=== PATIENT | female | born 1980 | race Hispanic/Latino ===

== ENCOUNTER 2021-04-09 11:59 | Emergency (ER) | payer SELFPAY ==
[~2021-04-09] VITALS: Ht 167.6 cm; Wt 120.2 kg
== END 2021-04-09 13:11 | disposition home or self-care (01) ==
LOC: ER 12:39
DX: R59.1 Generalized enlarged lymph nodes (principal); E66.01 Morbid (severe) obesity due to excess calories; Z85.42 Personal history of malignant neoplasm of other parts of uterus
CPT/HCPCS: 99282